=== PATIENT | female | born 1975 | race Caucasian/White ===

== ENCOUNTER 2020-12-31 17:36 | Emergency (ER) | payer MEDICAID, OTHER ==
[2020-12-31] MEDS ORDERED: Sodium Chloride 0.9% 1,000 ML IV SCH ×2 (18:00→18:45)
[2020-12-31] MEDS ORDERED: Sodium Chloride 0.9% 10 ML Syringe FLUSH PRN (18:00)
--- NOTE | 2020-12-31 18:11 | EDM.PDOC ---
ED HPI GENERAL MEDICAL PROBLEM - General Chief Complaint: General Stated Complaint: POSS. HEAT STROKE Time Seen by Provider: 12/31/20 17:54 Source of Information: Reports: Patient History Limitations: Reports: No Limitations - History of Present Illness INITIAL COMMENTS - FREE TEXT/NARRATIVE: Ria is a 45-year-old female from [place], [place] who is vacationing up here and presents with concerns of possible heatstroke. Patient is been out in the sun and in the heat the last couple of days. She reports that she had not been drinking much water yesterday only consuming about 48 ounces. She did get sunburned but today woke up with a severe headache, dizziness, difficulty with focusing, nausea and diarrhea. She does have a history of heatstroke in the past and states that the symptoms are very similar. She denies any palpitations, chest pain or shortness of breath. - Related Data Allergies Allergy/AdvReac Type Severity Reaction Status Date / Time No Known Allergies Allergy Verified 12/31/20 17:56 Home Meds: Home Meds Cholecalciferol (Vitamin D3) [Vitamin D] 1 tab PO DAILY 12/31/20 [History] Citalopram [Citalopram HBr] 20 mg PO DAILY 12/31/20 [History] Nitrofurantoin Monohyd/M-Cryst [Macrobid 100 mg Capsule] 100 mg PO BEDTIME 12/31/20 [History] Phentermine HCl 37.5 mg PO DAILY 12/31/20 [History] Topiramate 50 mg PO DAILY 12/31/20 [History] norgestimate-ethinyl estradioL [Previfem Tablet] 1 tab PO DAILY 12/31/20 [History] traZODone 1 - 2 tab PO BEDTIME 12/31/20 [History] ED ROS GENERAL - Review of Systems Review Of Systems: See Below Constitutional: Reports: Malaise, Fatigue HEENT: Reports: No Symptoms Respiratory: Reports: No Symptoms Cardiovascular: Reports: No Symptoms Endocrine: Reports: No Symptoms GI/Abdominal: Reports: Diarrhea, Nausea : Reports: No Symptoms Musculoskeletal: Reports: No Symptoms Skin: Reports: Other (First-degree sunburn) Neurological: Reports: Dizziness, Headache, Other (Trouble concentrating) Psychiatric: Reports: No Symptoms Hematologic/Lymphatic: Reports: No Symptoms Immunologic: Reports: No Symptoms ED EXAM, GENERAL - Physical Exam Exam: See Below Exam Limited By: No Limitations General Appearance: Alert, Anxious, Mild Distress Eye Exam: Bilateral Eye: EOMI, PERRL Nose: Normal Inspection Throat/Mouth: Normal Oropharynx, Normal Voice, No Airway Compromise, Other (Dry mucous membranes) Head: Atraumatic, Normocephalic Neck: Normal Inspection, Supple, Non-Tender, Full Range of Motion. No: Lymphadenopathy (R), Lymphadenopathy (L) Respiratory/Chest: No Respiratory Distress, Lungs Clear, Normal Breath Sounds Cardiovascular: Normal Peripheral Pulses, Regular Rate, Rhythm. No: Tachycardia Peripheral Pulses: 2+: Radial (L), Radial (R) GI/Abdominal: Normal Bowel Sounds, Soft, Non-Tender Extremities: Normal Inspection, Normal Range of Motion Neurological: Alert, Oriented, CN II-XII Intact, Normal Cognition, No Motor/Sensory Deficits Psychiatric: Normal Affect, Normal Mood Skin Exam: Warm, Dry, Intact, Other (First-degree sunburn on the forehead, arms and legs.) Lymphatic: No Adenopathy Course - Vital Signs Last Recorded V/S: Last Vital Signs Temp 35.9 C L 12/31/20 17:55 Pulse 68 12/31/20 17:55 Resp 16 12/31/20 17:55 BP 138/66 12/31/20 17:55 Pulse Ox 99 12/31/20 17:55 - Orders/Labs/Meds Orders: Active Orders 24 hr Category Date Time Status Sodium Chloride 0.9% [Normal Saline] 1,000 ml Med 12/31/20 18:00 Active IV ASDIRECTED Sodium Chloride 0.9% [Normal Saline] 1,000 ml Med 12/31/20 18:45 Active IV ASDIRECTED Sodium Chloride 0.9% [Saline Flush] Med 12/31/20 18:00 Active 10 ml FLUSH ASDIRECTED PRN Saline Lock Insert [OM.PC] Routine Oth 12/31/20 18:00 Ordered Medication Orders Sodium Chloride (Normal Saline) 1,000 mls @ 999 mls/hr IV ASDIRECTED NNAMDI Last Admin: 12/31/20 18:16 Dose: 999 mls/hr Documented by: KAYLEE Sodium Chloride (Normal Saline) 1,000 mls @ 999 mls/hr IV ASDIRECTED NNAMDI Last Admin: 12/31/20 18:58 Dose: 999 mls/hr Documented by: KAYLEE Sodium Chloride (Sodium Chloride 0.9% 10 Ml Syringe) 10 ml FLUSH ASDIRECTED PRN PRN Reason: Keep Vein Open Last Admin: 12/31/20 18:17 Dose: 10 ml Documented by: KAYLEE Labs: Laboratory Tests 12/31/20 12/31/20 Range/Units 18:20 18:20 WBC 6.8 (4.5-11.0) K/uL RBC 4.59 (3.30-5.50) M/uL Hgb 13.1 (12.0-15.0) g/dL Hct 40.1 (36.0-48.0) % MCV 87 (80-98) fL MCH 29 (27-31) pg MCHC 33 (32-36) % Plt Count 269 (150-400) K/uL Neut % (Auto) 73.7 H (36-66) % Lymph % (Auto) 20.6 L (24-44) % Eagle % (Auto) 4.7 (2-6) % Eos % (Auto) 0.4 L (2-4) % Baso % (Auto) 0.6 (0-1) % Sodium 142 (140-148) mmol/L Potassium 3.8 (3.6-5.2) mmol/L Chloride 106 (100-108) mmol/L Carbon Dioxide 26 (21-32) mmol/L Anion Gap 9.6 (5.0-14.0) mmol/L BUN 13 (7-18) mg/dL Creatinine 1.1 H (0.6-1.0) mg/dL Est Cr Clr Drug Dosing 66.32 mL/min Estimated GFR (MDRD) 54 L (>60) Glucose 96 (74-106) mg/dL Calcium 8.3 L (8.5-10.1) mg/dL Magnesium 1.9 (1.8-2.4) mg/dL Meds: Medications Generic Name Dose Route Start Last Admin Trade Name Freq PRN Reason Stop Dose Admin Sodium Chloride 1,000 mls @ 999 mls/hr 12/31/20 18:00 12/31/20 18:16 Normal Saline IV 999 mls/hr ASDIRECTED NNAMDI Administration Sodium Chloride 1,000 mls @ 999 mls/hr 12/31/20 18:45 12/31/20 18:58 Normal Saline IV 999 mls/hr ASDIRECTED NNAMDI Administration Sodium Chloride 10 ml 12/31/20 18:00 12/31/20 18:17 Sodium Chloride 0.9% 10 Ml Syringe FLUSH 10 ml ASDIRECTED PRN Administration Keep Vein Open Discontinued Medications Generic Name Dose Route Start Last Admin Trade Name Enochq PRN Reason Stop Dose Admin Ketorolac Tromethamine 15 mg 12/31/20 18:44 12/31/20 18:58 Ketorolac 30 Mg/Ml Sdv IVPUSH 12/31/20 18:45 15 mg ONETIME ONE Administration - Re-Assessments/Exams Free Text/Narrative Re-Assessment/Exam: 12/31/20 18:14 an IV was established and the patient was given a liter of normal saline for rehydration. Labs were obtained including a CBC, basic metabolic profile, and magnesium. 12/31/20 18:44 I reviewed the patient's labs showing a normal CBC and basic metabolic panel except for a creatinine of 1.1. The patient's magnesium is also normal at 1.9. We will continue to rehydrate her with a second liter of normal saline and I will give her Toradol 15 mg IV for her headache. Departure - Departure Time of Disposition: 20:32 Disposition: Home, Self-Care 01 Clinical Impression: Heat prostration due to water depletion Qualifiers: Encounter type: initial encounter Qualified Code(s): T67.3XXA - Heat exhaustion, anhydrotic, initial encounter - Discharge Information Instructions: Heat Exhaustion Referrals: PCP,None [Primary Care Provider] - Forms: ED Department Discharge Care Plan Goals: Please make sure that you maintain good hydration with at least 10 ounces of fluids every hour that you are exposed to the higher heats. Once you have heat exhaustion or heat prostration you are more prone to it recurring, so make sure that you be mindful for amount of exposure to temperatures above 80 degrees or direct sun exposure. Sepsis Event Note (ED) - Evaluation Sepsis Screening Result: No Definite Risk - Focused Exam Vital Signs: Vital Signs Temp Pulse Resp BP Pulse Ox 12/31/20 17:55 35.9 C L 68 16 138/66 99 12/31/20 17:53 35.9 C L 68 16 138/66 99 - Problem List & Annotations (1) Heat prostration due to water depletion SNOMED Code(s): 323537594 Code(s): T67.3XXA - HEAT EXHAUSTION, ANHYDROTIC, INITIAL ENCOUNTER Status: Acute Priority: Medium Current Visit: Yes Qualifiers: Encounter type: initial encounter Qualified Code(s): T67.3XXA - Heat exhaustion, anhydrotic, initial encounter - Problem List Review Problem List Initiated/Reviewed/Updated: Yes - My Orders Last 24 Hours: My Active Orders 12/31/20 18:00 Sodium Chloride 0.9% [Normal Saline] 1,000 ml IV ASDIRECTED Sodium Chloride 0.9% [Saline Flush] 10 ml FLUSH ASDIRECTED PRN Saline Lock Insert [OM.PC] Routine 12/31/20 18:45 Sodium Chloride 0.9% [Normal Saline] 1,000 ml IV ASDIRECTED - Assessment/Plan Last 24 Hours: My Active Orders 12/31/20 18:00 Sodium Chloride 0.9% [Normal Saline] 1,000 ml IV ASDIRECTED Sodium Chloride 0.9% [Saline Flush] 10 ml FLUSH ASDIRECTED PRN Saline Lock Insert [OM.PC] Routine 12/31/20 18:45 Sodium Chloride 0.9% [Normal Saline] 1,000 ml IV ASDIRECTED
[2020-12-31] MEDS ORDERED: Ketorolac 30 MG/ML SDV IVPUSH ONE (18:44)
== END 2020-12-31 20:47 | disposition home or self-care (01) ==
LOC: JP.ED 17:36
DX: T67.3XXA Heat exhaustion, anhydrotic, initial encounter (principal)
CPT/HCPCS: 36415; 80048; 83735; 85025; 96374; 99283; 99284; J1885; J7030